=== PATIENT | male | born 1945 | race Caucasian/White ===

== ENCOUNTER → 2017-07-27 | Outpatient (CLI) | payer OTHER ==
[~2017-07-27] MED LIST: ASPI-1026 PO; ATOR40TA71 PO; CARV6.2579 PO; HYDR-2534 PO; LOSA100T29 PO
== END | disposition home or self-care (01) ==
LOC: SHCH 14:06
PROVIDERS: ATTEND Internal Medicine Cardiovascular Disease
DX: I10 Essential (primary) hypertension (principal)
CPT/HCPCS: 93306

== ENCOUNTER 2017-08-16 17:50 | Observation (INO) | payer OTHER ==
[~2017-08-16] VITALS: Ht 182.9 cm; Wt 72.7 kg
[2017-08-16 18:27] LABS: BASOPHILS % (AUTO) 0.4 % (0.0-5.0); EOSINOPHILS % (AUTO) 1.3 % (0.0-8.0); HEMATOCRIT 35.8 % (42-54); LYMPHOCYTES % (AUTO) 41.4 % (21.0-51.0); MEAN CORPUSCULAR HEMOGLOBIN 32.6 pg (27.0-33.0); MEAN CORPUSCULAR HGB CONC 35.7 g/dL (32.0-36.0); MEAN CORPUSCULAR VOLUME 91.3 fL (79-99); MONOCYTES % (AUTO) 8.6 % (3.0-13.0); NEUTROPHILS % (AUTO) 48.3 % (40.0-77.0); NUCLEATED RED BLOOD CELLS 0.1 % (0.0-0.19); PLATELET COUNT (AUTO) 230 K/uL (130-400); RED BLOOD CELL COUNT(AUTO) 3.93 MIL/uL (4.50-6.20); RED CELL DISTRIBUTION WIDTH 12.7 % (11.0-15.5); WHITE BLOOD COUNT (AUTO) 6.1 K/uL (4.8-10.8)
[2017-08-16 18:36] LABS: CREATININE 1.3 mg/dL (0.5-1.5)
[2017-08-16 18:37] LABS: INR 1.01 (0.85-1.15); PARTIAL THROMBOPLASTIN TIME 24.9 SEC (26.3-35.5); PROTHROMBIN TIME 10.6 SEC (9.6-11.6)
[2017-08-16 18:41] LABS: ALBUMIN 4.1 g/dL (3.5-5.0); BILIRUBIN,TOTAL 0.8 mg/dL (0.2-1.0); TOTAL PROTEIN, SERUM 7.2 g/dL (6.0-8.3)
[2017-08-16 21:22] VITALS: BP 140/79
[2017-08-16] MEDS ORDERED: ASPI-1026 PO (23:08)
[2017-08-16] MEDS ORDERED: LOSA100T29 PO (23:08)
[2017-08-16] MEDS ORDERED: ATOR40TA71 PO (23:08)
[2017-08-16] MEDS ORDERED: HYDR-2534 PO (23:08)
[2017-08-17] VITALS (14 sets, daily range): BP systolic 97–157; BP diastolic 56–94
[2017-08-17] MEDS ORDERED: BUPIVACAINE/PF 0.25% 30ML VIAL IJ ONE (09:11)
[2017-08-17] MEDS ORDERED: LIDOCAINE HCL 1% MDV 50ML VIAL ONE (09:13)
[2017-08-17] MEDS ORDERED: MEPERIDINE-PF 50 MG/ML SYG ONE ×2 (09:32→09:54)
[2017-08-17] MEDS ORDERED: MIDAZOLAM HCL 1 MG/ML 2ML VIAL ONE ×4 (09:32→10:01)
[2017-08-17] MEDS ORDERED: ACETAMINOPHEN 325 MG TAB PO PRN (11:00)
[2017-08-17] MEDS ORDERED: ACETAMINOPHEN-CODEINE 300/30MG TAB PO PRN ×2 (11:00)
[2017-08-17] MEDS: CARVEDILOL 6.25 MG TABLET PO SCH ×2 (12:24→20:34)
[2017-08-17] MEDS ORDERED: HYDROCHLOROTHIAZIDE 25 MG TABLET PO SCH (21:00)
[2017-08-17] MEDS ORDERED: ASPIRIN 81MG TAB.CHEW PO SCH (21:00)
[2017-08-17] MEDS ORDERED: ASPIRIN 325 MG TABLET PO SCH (21:00)
[2017-08-17] MEDS ORDERED: ATORVASTATIN CALCIUM 40 MG TABLET PO SCH (21:00)
[2017-08-17] MEDS ORDERED: LOSARTAN 100 MG TABLET PO SCH (21:00)
[2017-08-18 03:22] VITALS: BP 130/78
[2017-08-18 03:29] VITALS: BP 104/69
[2017-08-18 07:00] VITALS: BP 174/98
[2017-08-18] MEDS ORDERED: CARV6.2579 PO (07:08)
[2017-08-18] MEDS: CARVEDILOL 6.25 MG TABLET PO SCH (08:34)
[2017-08-18 09:38] VITALS: BP 150/84
== END 2017-08-18 10:46 | disposition home or self-care (01) ==
LOC: EDH 17:50 → EDHIP 18:35 → 2DH 20:31
PROVIDERS: ADMIT Internal Medicine; ATTEND Internal Medicine
DX: R55 Syncope and collapse (principal); I49.3 Ventricular premature depolarization; I25.5 Ischemic cardiomyopathy; E78.5 Hyperlipidemia, unspecified; I25.10 Atherosclerotic heart disease of native coronary artery without angina pectoris; I13.0 Hypertensive heart and chronic kidney disease with heart failure and stage 1 through stage 4 chronic kidney disease, or unspecified chronic kidney disease; I50.22 Chronic systolic (congestive) heart failure; N18.3 Chronic kidney disease, stage 3 (moderate); I25.2 Old myocardial infarction; Z95.810 Presence of automatic (implantable) cardiac defibrillator; Z79.82 Long term (current) use of aspirin
CPT/HCPCS: 33249; 36415; 71045 ×2; 80053; 82550; 84484; 85025; 85610; 85730; 93005; 99285; C1721; C1895 ×2; G0378 ×40; J2175 ×2; J2250 ×4; J3490 ×2; 99152; 99153

== ENCOUNTER 2019-07-18 14:58 | Emergency (ER) | payer OTHER ==
[~2019-07-18 14:58] MED LIST changes: -LOSA100T29 PO; +LOSA100T58 PO
[2019-07-18 15:36] LABS: BASOPHILS % (AUTO) 0.3 % (0.0-5.0); EOSINOPHILS % (AUTO) 0.7 % (0.0-8.0); HEMATOCRIT 36.4 % (42-54); LYMPHOCYTES % (AUTO) 20.9 % (21.0-51.0); MEAN CORPUSCULAR HEMOGLOBIN 30.5 pg (27.0-33.0); MEAN CORPUSCULAR HGB CONC 34.1 g/dL (32.0-36.0); MEAN CORPUSCULAR VOLUME 89.4 fL (79-99); MONOCYTES % (AUTO) 7.8 % (3.0-13.0); NEUTROPHILS % (AUTO) 70.1 % (40.0-77.0); PLATELET COUNT (AUTO) 211 K/uL (130-400); RED BLOOD CELL COUNT(AUTO) 4.07 MIL/uL (4.50-6.20); RED CELL DISTRIBUTION WIDTH 11.9 % (11.0-15.5); WHITE BLOOD COUNT (AUTO) 5.8 K/uL (4.8-10.8)
[2019-07-18] MEDS ORDERED: SODIUM CHLORIDE 0.9% 1000ML 1,000 ML IV ONE (15:50)
[2019-07-18] MEDS ORDERED: ONDANSETRON HCL 4 MG/2 ML VIAL ONE (15:50)
[2019-07-18 15:54] LABS: APPEARANCE,URINE Clear (CLEAR); BILIRUBIN,URINE Negative (NEGATIVE); COLOR,URINE Yellow (YELLOW); GLUCOSE, URINE (UA) Negative (NEGATIVE); KETONES,URINE Negative (NEGATIVE); LEUKOCYTE ESTERASE ,URINE Negative (NEGATIVE); NITRATE,URINE Negative (NEGATIVE); OCCULT BLOOD,URINE Negative (NEGATIVE); PROTEIN,URINE Negative (NEGATIVE)
[2019-07-18 16:14] LABS: B-TYPE NATRIURETIC PEPTIDE 119 pg/mL (0-100)
[2019-07-18 16:45] LABS: CREATININE 1.2 mg/dL (0.5-1.5); POTASSIUM 3.6 mmol/L (3.5-5.1)
[2019-07-18 16:52] LABS: ALBUMIN 4.1 g/dL (3.5-5.0); BILIRUBIN,DIRECT 0.2 mg/dL (0.0-0.3); TOTAL PROTEIN, SERUM 7.1 g/dL (6.0-8.3)
== END 2019-07-18 19:51 | disposition home or self-care (01) ==
LOC: EDH 14:58
DX: R42 Dizziness and giddiness (principal); R53.1 Weakness; I10 Essential (primary) hypertension; E78.5 Hyperlipidemia, unspecified; Z88.6 Allergy status to analgesic agent; Z88.0 Allergy status to penicillin; Z95.0 Presence of cardiac pacemaker
CPT/HCPCS: 36415; 70450; 80048; 80076; 81003; 82550; 83880; 84484; 85025; 93005; 96360; 96361; 99285; J7030; J2405

== ENCOUNTER 2021-09-30 19:36 | Emergency (ER) | payer OTHER ==
[~2021-09-30 19:36] MED LIST changes: -HYDR-2534 PO; +HYDR50TA PO
[2021-09-30 20:23] LABS: HEMATOCRIT 38.4 % (42-54); MEAN CORPUSCULAR HGB CONC 33.1 g/dL (32.0-36.0); MEAN CORPUSCULAR VOLUME 90.6 fL (79-99); PLATELET COUNT (AUTO) 186 K/uL (130-400); RED BLOOD CELL COUNT(AUTO) 4.24 MIL/uL (4.50-6.20); RED CELL DISTRIBUTION WIDTH 12.7 % (11.0-15.5); WHITE BLOOD COUNT (AUTO) 7.7 K/uL (4.8-10.8)
[2021-09-30 20:26] LABS: CREATININE 1.8 mg/dL (0.5-1.5); POTASSIUM 3.8 mmol/L (3.5-5.1)
[2021-09-30 20:31] LABS: BASOPHILS % (AUTO) 0.4 % (0.0-5.0); EOSINOPHILS % (AUTO) 1.7 % (0.0-8.0); LYMPHOCYTES % (AUTO) 24.4 % (21.0-51.0); MONOCYTES % (AUTO) 6.7 % (3.0-13.0); NEUTROPHILS % (AUTO) 66.5 % (40.0-77.0)
[2021-09-30 20:34] LABS: ALBUMIN 4.5 g/dL (3.5-5.0); TOTAL PROTEIN, SERUM 7.6 g/dL (6.0-8.3)
[2021-09-30] MEDS ORDERED: ONDANSETRON 4MG INJ ONE (20:55)
[2021-09-30] MEDS ORDERED: ONDANSETRON 4MG INJ IVP ONE (21:30)
[2021-09-30 22:28] LABS: APPEARANCE,URINE Clear (CLEAR); BILIRUBIN,URINE Negative (NEGATIVE); COLOR,URINE Dark Yellow (YELLOW); GLUCOSE, URINE (UA) Negative (NEGATIVE); KETONES,URINE 15 mg/dL (NEGATIVE); LEUKOCYTE ESTERASE ,URINE Negative (NEGATIVE); NITRATE,URINE Negative (NEGATIVE); OCCULT BLOOD,URINE Negative (NEGATIVE); PH,URINE 5.5 (5.0-8.0); PROTEIN,URINE Trace mg/dL (NEGATIVE)
[2021-09-30] MEDS ORDERED: MECLIZINE HCL 25 MG TABLET PO ONE (23:00)
[2021-09-30] MEDS ORDERED: 0.9% NACL 500ML IV.SOLN 500 ML IV ONE (23:00)
[2021-10-01 01:22] VITALS: BP 143/73
== END 2021-10-01 01:30 | disposition home or self-care (01) ==
LOC: EDH 19:36
DX: R42 Dizziness and giddiness (principal); I13.0 Hypertensive heart and chronic kidney disease with heart failure and stage 1 through stage 4 chronic kidney disease, or unspecified chronic kidney disease; N18.9 Chronic kidney disease, unspecified; I50.9 Heart failure, unspecified; E78.00 Pure hypercholesterolemia, unspecified; Z88.0 Allergy status to penicillin; Z88.6 Allergy status to analgesic agent; Z95.0 Presence of cardiac pacemaker; Z79.82 Long term (current) use of aspirin
CPT/HCPCS: 36415; 70450; 80053; 81003; 85025; 93005; 96361; 96374; 99285; J2405; J7040

== ENCOUNTER 2022-06-29 12:57 | Observation (INO) | payer OTHER ==
[~2022-06-29] VITALS: Ht 182.9 cm; Wt 102.1 kg
[2022-06-29 13:26] LABS: BASOPHILS % (AUTO) 0.7 % (0.0-5.0); EOSINOPHILS % (AUTO) 2.6 % (0.0-8.0); LYMPHOCYTES % (AUTO) 28.5 % (21.0-51.0); MEAN CORPUSCULAR HGB CONC 33.1 g/dL (32.0-36.0); MEAN CORPUSCULAR VOLUME 96.8 fL (79-99); MONOCYTES % (AUTO) 7.9 % (3.0-13.0); NEUTROPHILS % (AUTO) 60.1 % (40.0-77.0); PLATELET COUNT (AUTO) 211 K/uL (130-400); RED BLOOD CELL COUNT(AUTO) 4.03 MIL/uL (4.50-6.20); RED CELL DISTRIBUTION WIDTH 13.5 % (11.0-15.5); WHITE BLOOD COUNT (AUTO) 5.7 K/uL (4.8-10.8)
[2022-06-29 13:38] LABS: CREATININE 1.6 mg/dL (0.5-1.5); POTASSIUM 3.9 mmol/L (3.5-5.1)
[2022-06-29 13:45] LABS: B-TYPE NATRIURETIC PEPTIDE 2180 pg/mL (0-100)
[2022-06-29 13:49] LABS: ALBUMIN 3.8 g/dL (3.5-5.0); TOTAL PROTEIN, SERUM 6.7 g/dL (6.0-8.3)
[2022-06-29] MEDS ORDERED: FUROSEMIDE 40MG VIAL IV STA (14:25)
[2022-06-29] MEDS ORDERED: LIDOCAINE HCL-MPF 1% 2ML VIAL IV PRN (16:00)
[2022-06-29] MEDS ORDERED: POTASSIUM CHLORIDE 20MEQ/100ML 100 ML IV PRN (16:00)
[2022-06-29] MEDS ORDERED: POTASSIUM CHLORIDE 10% ELIXIR 20 MEQ/15 ML UDCUP PO PRN (16:00)
[2022-06-29] MEDS ORDERED: ASPI-1026 PO (19:39)
[2022-06-29] MEDS ORDERED: METO-391 PO (19:39)
[2022-06-29] MEDS ORDERED: CYAN100099 PO (19:39)
[2022-06-29] MEDS ORDERED: IRON-15 PO (19:39)
[2022-06-29] MEDS ORDERED: SACU1TAB PO (19:39)
[2022-06-29] MEDS ORDERED: ATOR40TA71 PO (19:39)
[2022-06-29] MEDS ORDERED: FURO40TA5 PO (19:39)
[2022-06-29 21:00] VITALS: BP 135/89
[2022-06-29] MEDS ORDERED: FUROSEMIDE 40MG VIAL IV SCH (21:00)
[2022-06-29 23:18] VITALS: BP 135/91
[2022-06-30 04:38] VITALS: BP 137/88
[2022-06-30 05:18] LABS: HEMATOCRIT 40.2 % (42-54); MEAN CORPUSCULAR HEMOGLOBIN 32.2 pg (27.0-33.0); MEAN CORPUSCULAR HGB CONC 32.8 g/dL (32.0-36.0); RED BLOOD CELL COUNT(AUTO) 4.1 MIL/uL (4.50-6.20); RED CELL DISTRIBUTION WIDTH 13.4 % (11.0-15.5); WHITE BLOOD COUNT (AUTO) 5.7 K/uL (4.8-10.8)
[2022-06-30 05:33] LABS: ALBUMIN 3.8 g/dL (3.5-5.0); CREATININE 1.7 mg/dL (0.5-1.5); POTASSIUM 3.4 mmol/L (3.5-5.1); TOTAL PROTEIN, SERUM 6.5 g/dL (6.0-8.3)
[2022-06-30] MEDS: KCL 20 MEQ ERTAB PO PRN ×2 (05:48→18:05)
[2022-06-30 07:30] VITALS: BP 135/85
[2022-06-30] MEDS: FUROSEMIDE 40 MG TABLET PO SCH ×2 (07:48→16:34)
[2022-06-30 11:30] VITALS: BP 145/78
[2022-06-30] MEDS ORDERED: SACU1TAB PO (17:07)
[2022-06-30 17:23] VITALS: BP 143/93
[2022-06-30] MEDS ORDERED: ATORVASTATIN 40 MG TABLET PO SCH (21:00)
[2022-06-30 21:18] VITALS: BP 148/77
[2022-06-30] MEDS: SACUBITRIL/VALSARTAN 1 EACH TABLET PO SCH (21:23)
[2022-06-30 23:59] VITALS: BP 136/86
[2022-07-01 04:34] VITALS: BP 145/89
[2022-07-01 07:30] VITALS: BP 144/86
[2022-07-01] MEDS: SACUBITRIL/VALSARTAN 1 EACH TABLET PO SCH (08:12)
[2022-07-01] MEDS: FUROSEMIDE 40 MG TABLET PO SCH (08:13)
[2022-07-01] MEDS ORDERED: CYANOCOBALAMIN (VITAMIN B-12) 1,000 MCG TABLET PO SCH (09:00)
[2022-07-01] MEDS ORDERED: ASPIRIN 325MG TAB PO SCH (09:00)
[2022-07-01] MEDS ORDERED: IRON CARBONYL PO SCH (09:00)
[2022-07-01] MEDS ORDERED: ASCORBIC ACID PO SCH (09:00)
[2022-07-01] MEDS ORDERED: METOPROLOL SUCCINATE 50 MG TAB.SR.24H PO SCH (09:00)
== END 2022-07-01 09:25 | disposition home or self-care (01) ==
LOC: EDH 12:57 → EDHIP 15:08 → 3CH 20:46
PROVIDERS: ADMIT Internal Medicine; ATTEND Internal Medicine
DX: I11.0 Hypertensive heart disease with heart failure (principal); Z20.822 Contact with and (suspected) exposure to COVID-19; I50.20 Unspecified systolic (congestive) heart failure; I25.10 Atherosclerotic heart disease of native coronary artery without angina pectoris; E78.00 Pure hypercholesterolemia, unspecified; R06.03 Acute respiratory distress; Z95.810 Presence of automatic (implantable) cardiac defibrillator; Z79.899 Other long term (current) drug therapy; Z98.890 Other specified postprocedural states; Z79.82 Long term (current) use of aspirin
CPT/HCPCS: 96374; 96376; 99285; 82550 ×3; 83874 ×3; 84484 ×3; 80053 ×2; 83880; 85025; 36415 ×2; 87635; 71045; 93005; 85027; G0378 ×42; J1940 ×2

== ENCOUNTER → 2022-08-02 | Outpatient (CLI) | payer OTHER ==
[~2022-08-02] MED LIST changes: -CARV6.2579 PO; +CYAN100099 PO; +FURO40TA5 PO; -HYDR50TA PO; +IRON-15 PO; -LOSA100T58 PO; +METO-391 PO; +SACU1TAB PO
== END | disposition home or self-care (01) ==
LOC: SHCH 13:19
PROVIDERS: ATTEND Internal Medicine Cardiovascular Disease
DX: I08.8 Other rheumatic multiple valve diseases (principal); I27.20 Pulmonary hypertension, unspecified; I42.9 Cardiomyopathy, unspecified
CPT/HCPCS: 93306

== ENCOUNTER → 2022-12-04 | Outpatient (CLI) | payer OTHER ==
[~2022-12-04] MED LIST changes: +CLOP75TA32 PO; +METO5TAB7 PO
[2022-12-04 12:18] LABS: CREATININE 1.8 mg/dL (0.5-1.5); POTASSIUM 3.5 mmol/L (3.5-5.1)
== END | disposition home or self-care (01) ==
LOC: LAB 08:58
PROVIDERS: ATTEND Internal Medicine Cardiovascular Disease
DX: I10 Essential (primary) hypertension (principal)
CPT/HCPCS: 36415; 80048; 83880

== ENCOUNTER → 2023-01-27 | Outpatient (CLI) | payer OTHER ==
[2023-01-27 12:36] LABS: CREATININE 1.8 mg/dL (0.5-1.5)
[2023-01-27 12:42] LABS: POTASSIUM 2.8 mmol/L (3.5-5.1)
== END | disposition home or self-care (01) ==
LOC: LAB 09:28
PROVIDERS: ATTEND Internal Medicine Cardiovascular Disease
DX: I10 Essential (primary) hypertension (principal)
CPT/HCPCS: 36415; 80048